=== PATIENT | male | born 1990 | race Two or more races ===

== ENCOUNTER 2019-05-14 22:43 | Emergency (ER) | payer SELFPAY ==
[~2019-05-14] VITALS: Ht 180.3 cm; Wt 86.0 kg
[2019-05-15 03:12] VITALS: BP 154/76
== END 2019-05-15 03:13 | disposition home or self-care (01) ==
LOC: ER 22:43
DX: M23.8X2 Other internal derangements of left knee (principal); M76.32 Iliotibial band syndrome, left leg; F41.9 Anxiety disorder, unspecified; F10.129 Alcohol abuse with intoxication, unspecified; Y90.9 Presence of alcohol in blood, level not specified; Z21 Asymptomatic human immunodeficiency virus [HIV] infection status; Z88.0 Allergy status to penicillin
CPT/HCPCS: 99283